=== PATIENT | male | born 1995 | race Caucasian/White ===

== ENCOUNTER 2016-08-20 17:16 | Emergency (ER) | payer SELFPAY ==
[2016-08-20 17:37] VITALS: BP 121/71; PULSE 77; TEMP 98.5; BMI 27.1
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
== END 2016-08-20 20:42 | disposition left against medical advice (07) ==
LOC: ED 17:16
DX: S01.81XA Laceration without foreign body of other part of head, initial encounter (principal); W22.8XXA Striking against or struck by other objects, initial encounter; Y93.9 Activity, unspecified
CPT/HCPCS: 70450; 70486; 99281